=== PATIENT | female | born 1985 | race Caucasian/White ===

== ENCOUNTER 2018-08-04 11:14 | Emergency (ER) | payer OTHER ==
[~2018-08-04] VITALS: Ht 172.7 cm; Wt 145.1 kg
[2018-08-04 11:15] VITALS: BP_SYST 150
[2018-08-04] MEDS ORDERED: IBUPROFEN 800 MG TABLET PO ONE (13:00)
[2018-08-04 13:09] VITALS: BP_SYST 143
== END 2018-08-04 13:09 | disposition home or self-care (01) ==
LOC: SED 11:14
DX: M25.512 Pain in left shoulder (principal); R03.0 Elevated blood-pressure reading, without diagnosis of hypertension; V89.2XXA Person injured in unspecified motor-vehicle accident, traffic, initial encounter; Y93.89 Activity, other specified; Y92.89 Other specified places as the place of occurrence of the external cause; Y99.8 Other external cause status
CPT/HCPCS: 73030; 81025; 99283